=== PATIENT | female | born 1960 | race Caucasian/White ===

== ENCOUNTER 2017-04-19 09:15 | Emergency (ER) | payer MEDICAID ==
[~2017-04-19] VITALS: Ht 146.1 cm; Wt 77.7 kg
[~2017-04-19 09:15] MED LIST: GLU500 PO
[2017-04-19 09:18] VITALS: BP 149/73
--- NOTE | 2017-04-19 09:18 | NUR ---
Patient ambulated to bed 07.
--- NOTE | 2017-04-19 09:18 | NUR ---
Benson rollins in [facility] - 04/19/17 at 0926 by FIGUEROA Patient to bed .
--- NOTE | 2017-04-19 09:27 | NUR ---
57F BIB SELF C/O RT 2ND DIGIT FOOT PAIN X 4 DAYS S/P FALL; PT STATES NO LOC AT TIME OF INCIDENT. HX: DM RX: METFORMIN; DENIES N/V/D; SKIN IS PINK/WARM/DRY; AAOX4 WITH EVEN AND STEADY GAIT; LUNGS CLEAR BL; HR EVEN AND REGULAR; PT DENIES ANY FEVER, CP, SOB, OR COUGH AT THIS TIME; PATIENT STATES PAIN OF 8/10 AT THIS TIME; VSS; PATIENT POSITIONED FOR COMFORT; HOB ELEVATED; BEDRAILS UP X2; BED DOWN. ER MD MADE AWARE OF PT STATUS.
--- NOTE | 2017-04-19 09:42 | NUR ---
DR DEL VALLE EVALUATING AAO PT AT BEDSIDE
[2017-04-19] MEDS ORDERED: IBUPROFEN 400 MG TAB PO ONE (09:45)
--- NOTE | 2017-04-19 10:00 | NUR ---
XRAY AT BEDSIDE
[2017-04-19 11:12] VITALS: BP 126/69
--- NOTE | 2017-04-19 11:12 | NUR ---
Patient discharged with v/s stable. Written and verbal after care instructions given and explained. Patient verbalized understanding. Ambulatory with steady gait. All questions addressed prior to discharge. Advised to follow up with PMD.
== END 2017-04-19 11:12 | disposition home or self-care (01) ==
LOC: MED 09:15
DX: S90.121A Contusion of right lesser toe(s) without damage to nail, initial encounter (principal); E11.9 Type 2 diabetes mellitus without complications; I10 Essential (primary) hypertension; Z90.49 Acquired absence of other specified parts of digestive tract; W01.0XXA Fall on same level from slipping, tripping and stumbling without subsequent striking against object, initial encounter; Y93.89 Activity, other specified; Y92.89 Other specified places as the place of occurrence of the external cause; Y99.8 Other external cause status
CPT/HCPCS: 73660; 82948; 99284

== ENCOUNTER 2017-12-19 19:35 | Emergency (ER) | payer MEDICAID ==
[~2017-12-19] VITALS: Ht 162.6 cm; Wt 104.3 kg
[2017-12-19 19:44] VITALS: BP 143/70
--- NOTE | 2017-12-19 19:47 | NUR ---
TO BED # 11 VIA W/C, REPORT GIVEN TO JUSTO BOYER.
--- NOTE | 2017-12-19 20:01 | NUR ---
57 Y/O F W/C/O L ANKLE, FOOT PAIN S/P FALLING X 1 HR AGO. PT STATES TOOK IBUPROFEN 600MG AT HOME. NO S/S OF IMPAIRED CIRCULATION NOTED, CAP REFILL LESS THAN 3, SKIN WARM AND DRY, AFFECTED FOOT SLIGLTY SWOLLEN. NO OTHER S/S OF DISTRESS NOTED. PA MADE AWARE.
[2017-12-19] MEDS ORDERED: KETOROLAC 60 MG/2 ML VIAL IM ONE (21:15)
[2017-12-19 21:40] VITALS: BP 145/73
--- NOTE | 2017-12-19 21:40 | NUR ---
Patient discharged with v/s stable. Written and verbal after care instructions given and explained. Patient alert, oriented and verbalized understanding of instructions. WHEELCAHIR ASSISTED BY CAREGIVER. All questions addressed prior to discharge. ID band removed. Patient advised to follow up with PMD FOR REFERAL WITH ORTHO DR. Rx of TYLENOL EXTRA STREIGHT given. Patient educated on indication of medication including possible reaction and side effects. Opportunity to ask questions provided and answered.
== END 2017-12-19 21:40 | disposition home or self-care (01) ==
LOC: MED 19:35
DX: S92.342A Displaced fracture of fourth metatarsal bone, left foot, initial encounter for closed fracture (principal); E11.9 Type 2 diabetes mellitus without complications; I10 Essential (primary) hypertension; E78.5 Hyperlipidemia, unspecified; Z79.84 Long term (current) use of oral hypoglycemic drugs; W19.XXXA Unspecified fall, initial encounter; Y93.89 Activity, other specified; Y92.89 Other specified places as the place of occurrence of the external cause; Y99.8 Other external cause status
CPT/HCPCS: 73630; 96372; 99284; J1885; Q0092